=== PATIENT | female | born 1955 | race Two or more races ===

== ENCOUNTER 2016-12-23 18:12 | Emergency (ER) | payer OTHER ==
[2016-12-23 18:06] LABS: URINE SOURCE CLEAN CATCH
[2016-12-23 18:09] LABS: URINE APPEARANCE CLEAR; URINE BILIRUBIN NEG (NEG); URINE BLOOD NEG (NEG); URINE COLOR YELLOW; URINE GLUCOSE NEG (NEG); URINE KETONE NEG (NEG); URINE LEUKOCYTE ESTERASE NEG (NEG); URINE NITRATE NEG (NEG); URINE PROTEIN NEG (NEG); URINE SPECIFIC GRAVITY 1.009 (1.003-1.035); URINE UROBILINOGEN 0.2 MG/DL (NEG)
[2016-12-23 18:11] LABS: CULTURE INDICATED? NO
== END 2016-12-23 18:55 | disposition home or self-care (01) ==
LOC: CFTX 18:12
PROVIDERS: Nurse Practitioner
DX: R30.0 Dysuria (principal); M54.5 Low back pain; F31.9 Bipolar disorder, unspecified; I10 Essential (primary) hypertension; Z90.49 Acquired absence of other specified parts of digestive tract; Z88.8 Allergy status to other drugs, medicaments and biological substances
CPT/HCPCS: 81003; 82947; 99283

== ENCOUNTER 2017-01-19 23:55 | Emergency (ER) | payer OTHER ==
--- NOTE | ~2017-01-19 | EKG ---
PATIENT: CAROLINE GIPSON UNIT #: [id number] Ventricular Rate: 49 BPM Atrial Rate: 49 BPM P-R Interval: 164 ms QRS Duration: 94 ms Q-T Interval: 456 ms QTC Calculation(Bezet): 411 ms P [place]: 16 degrees Calculated R [place]: 10 degrees Calculated T [place]: 15 degrees Diagnosis Line: Sinus bradycardia Diagnosis Line: Minimal voltage criteria for LVH, may be normal Diagnosis Line: variant Diagnosis Line: Borderline ECG Diagnosis Line: No previous ECGs available Diagnosis Line: Confirmed by BRISEIDA GRAY MD ([id number]) on 01/22/2017 Diagnosis Line: 10:54:04 PM INTERPRETING MD: MARINA HARKINS
[2017-01-19 21:44] LABS: BASOPHIL% 0.5 % (0-2.5); EOSINOPHIL% 0.8 % (0.0-7.0); HEMATOCRIT 43.1 % (35.0-45.0); HEMOGLOBIN 14.5 gm/dL (12.0-16.0); LYMPHOCYTE# 1.8 X10e3 (1.0-3.5); LYMPHOCYTE% 31.9 % (17.0-45.0); MEAN CELL VOLUME 92.3 FL (83-96); MEAN CORPUSCULAR HGB CONC 33.6 g/dL (30-36); MEAN PLATELET VOLUME 9.8 FL (6.5-11.5); MONOCYTE# 0.2 X10e3 (0-1.0); MONOCYTE% 4.2 % (3.0-12.0); NEUTROPHIL# 3.5 X10e3 (1.5-7.1); NEUTROPHIL% 62.6 % (40-75); PLATELET COUNT 174 X10e3 (140-420); RED BLOOD COUNT 4.67 X10e (3.90-5.30); WHITE BLOOD COUNT 5.5 X10e3 (4.0-10.5)
[2017-01-19 21:50] LABS: DIFF IND NO
[2017-01-19 22:12] LABS: ALBUMIN SERUM 4.3 g/dL (3.5-5.0); BILIRUBIN, DIRECT 0.1 mg/dL (0.0-0.2); BILIRUBIN,INDIRECT 0.7 mg/dL (0.0-0.9); BILIRUBIN,TOTAL 0.8 mg/dL (0.2-2.0); CALCIUM SERUM 9.4 mg/dL (8.4-10.2); GLOM FILT RATE Estimated 61.6 mL/min (>60); POTASSIUM 3.9 mmol/L (3.5-5.1); PROTEIN TOTAL SERUM 7.6 g/dL (6.0-8.3)
[2017-01-19 23:14] LABS: URINE SOURCE CLEAN CATCH
[2017-01-19 23:21] LABS: URINE APPEARANCE CLEAR; URINE BILIRUBIN NEG (NEG); URINE BLOOD NEG (NEG); URINE COLOR YELLOW; URINE GLUCOSE NEG (NEG); URINE KETONE NEG (NEG); URINE LEUKOCYTE ESTERASE NEG (NEG); URINE NITRATE NEG (NEG); URINE PH 5.5 (5-8); URINE PROTEIN NEG (NEG); URINE SPECIFIC GRAVITY 1.007 (1.003-1.035); URINE UROBILINOGEN 0.2 MG/DL (NEG)
[2017-01-19 23:26] LABS: CULTURE INDICATED? NO
== END 2017-01-20 00:45 | disposition home or self-care (01) ==
LOC: CED 23:55
PROVIDERS: Student in an Organized Health Care Education/Training Program
DX: K29.00 Acute gastritis without bleeding (principal); I73.9 Peripheral vascular disease, unspecified; I10 Essential (primary) hypertension; E03.9 Hypothyroidism, unspecified; Z90.49 Acquired absence of other specified parts of digestive tract
CPT/HCPCS: 36415; 80048; 80076; 81003; 82150; 83690; 85025; 93005; 99284